=== PATIENT | male | born 1955 | race Caucasian/White ===

== ENCOUNTER 2016-09-13 20:25 | Emergency (ER) | payer OTHER ==
--- NOTE | 2016-09-13 20:28 | UC ---
Throat Pain/Nasal Dustin HPI - HPI Summary HPI Summary: 61 year female presents with cough, sinus congestion and sore throat. - History of Current Complaint Stated Complaint: sore throat, headache Time Seen by Provider: 09/13/16 20:26 - Allergies/Home Medications Allergies/Adverse Reactions: Allergies Allergy/AdvReac Type Severity Reaction Status Date / Time No Known Allergies Allergy Verified 09/13/16 20:37 Home Medications: Home Medications Ibuprofen TAB* [Motrin TAB* 600 MG] 600 mg PO Q4H PRN 09/13/16 [History Confirmed 09/13/16] PMH/Surg Hx/FS Hx/Imm Hx - Surgical History Surgical History: Yes Surgery Procedure, Year, and Place: thyroidectomy due to goiter. - Family History Family History: no known cardio-vascular, bleeding disorder - Social History Alcohol Use: None Substance Use Type: None Smoking Status (MU): Former Smoker When Did the Patient Quit Smoking/Using Tobacco: 2005 - Immunization History Most Recent Tetanus Shot: 5-10 yrs ago. Hx Tetanus, Diphtheria Vaccination: Yes - 5 years ago Vaccination Up to Date: Yes Review of Systems Constitutional: Negative Skin: Negative Eyes: Negative ENT: Sore Throat, Nasal Discharge, Sinus Congestion, Sinus Pain/Tenderness Respiratory: Negative Cardiovascular: Negative Gastrointestinal: Negative Genitourinary: Negative Motor: Negative Neurovascular: Negative Musculoskeletal: Negative Neurological: Negative Psychological: Negative All Other Systems Reviewed And Are Negative: Yes Physical Exam Triage Information Reviewed: Yes Eye Exam: Normal ENT: Positive: Pharyngeal erythema, Nasal congestion, Nasal drainage Dental Exam: Normal Neck exam: Normal Neck: Positive: 1 Respiratory Exam: Normal Cardiovascular Exam: Normal Abdominal Exam: Normal Musculoskeletal Exam: Normal Neurological Exam: Normal Psychological Exam: Normal Skin Exam: Normal Throat Pain/Nasal Course/Dx - Differential Dx/Diagnosis Differential Diagnosis/HQI/PQRI: Laryngitis, Pharyngitis, Sinusitis, Tonsillitis Provider Diagnoses: pharyngitis Discharge - Discharge Plan Condition: Stable Disposition: HOME Prescriptions: Amoxicillin/Clavulanate TAB* [Augmentin TAB 875*] 875 mg PO BID #20 tab Magic M W2 Heri/Maal/Nyst/Lido* 15 ml SWISH SPIT QID #120 ml Methylprednisolone [Medrol Dosepak 4 MG*] 4 mg PO .SEE KRUPA INSTRUCTION #21 tab Patient Education Materials: Pharyngitis (ED) Referrals: Randy Mathews DO [Primary Care Provider] - As Soon As Possible
[2016-09-13 20:45] VITALS: BP 156/90
[2016-09-13] MEDS ORDERED: predniSONE TAB* 20 MG PO ONE (21:20)
[2016-09-13] MEDS ORDERED: Amoxicillin/Clavulanate TAB* 875 MG PO ONE (21:20)
== END 2016-09-13 21:46 | disposition home or self-care (01) ==
LOC: UCCORT 20:25
DX: J02.9 Acute pharyngitis, unspecified (principal); Z87.891 Personal history of nicotine dependence
CPT/HCPCS: 87651; 99212; A9270-GY; G0463; J7512